=== PATIENT | male | born 1995 | race Asian ===

== ENCOUNTER 2020-12-01 16:42 | Emergency (ER) | payer MEDICAID, OTHER ==
[~2020-12-01] VITALS: Ht 175.3 cm; Wt 65.9 kg
[2020-12-01] MEDS ORDERED: LIDOCAINE 5% TRANSDERMAL PATCH TD ONE (17:15)
[2020-12-01] MEDS ORDERED: KETOROLAC TROMETHAMINE 30 MG/ML VIAL IM ONE (17:15)
[2020-12-01] MEDS ORDERED: METHOCARBAMOL 500 MG TABLET PO ONE (17:15)
[2020-12-01 18:12] VITALS: BP 122/53
== END 2020-12-01 18:59 | disposition home or self-care (01) ==
LOC: EMS 16:42
DX: M54.5 Low back pain (principal)
CPT/HCPCS: 72100; 96372; 99283; J1885